=== PATIENT | male | born 1970 | race Caucasian/White ===

== ENCOUNTER 2023-05-28 08:35 | Outpatient (CLI) | payer BC, SELFPAY | END 2023-05-28 08:36 | disposition home or self-care (01) | PROVIDERS: PCP Physician Assistant Medical; Visit Provider Physician Assistant Medical | DX: R63.4 Abnormal weight loss (principal); R63.1 Polydipsia; R53.83 Other fatigue; E11.9 Type 2 diabetes mellitus without complications; I10 Essential (primary) hypertension | CPT/HCPCS: 80053; 80061; 82043; 82570; 83525; 84443; G0103 ==

== ENCOUNTER 2023-06-04 14:43 | Emergency (ER) | payer BC, SELFPAY ==
[2023-06-04] VITALS (7 sets, daily range): BP systolic 129–136; BP diastolic 71–87; PULSE 60–71; RESP 12–16; TEMP 36.1; O2SAT 94–97
--- NOTE | 2023-06-04 15:22 | CT_ITS ---
Patient: GENE KOVACS Facility:?[facility] RIS Patient ID:?[id number] Site Patient ID:?[id number]. Site :?1970 Study:?CT-Head Angio W/ISOVUE 370 95CC-06/04/2023 4:28:13 PM Ordering Physician:RHETT Final Report: ADDENDUM: 95 cc Isovue 370. CRL:sp CLINICAL HISTORY: Visual changes; frontal pressure. TECHNIQUE: Standard helical CT image acquisition through the head following the administration of intravenous contrast was performed. 3D and MIP reconstructions were performed at a separate workstation and permanently archived. COMPARISON: None available. FINDINGS: No intracranial proximal large vessel occlusion or flow-limiting luminal stenosis. No evidence of cerebral aneurysm. No findings to suggest an arterial-venous shunting lesion. The major dural venous sinuses and deep venous system are patent. IMPRESSION: No intracranial proximal large vessel occlusion, flow-limiting luminal stenosis, or cerebral aneurysm. Please note that all CT scans at this facility use dose modulation, iterative reconstruction, and/or weight-based dosing when appropriate to reduce radiation dose to as low as reasonably achievable. Dictated by Reji Matias MD @ 06/05/2023 4:18:11 PM Signed by: Reji Matias @ 06/05/2023 4:18:11 PM (Electronic Signature) Signed by:?Reji Matias MD @06/09/2023 1:25:53 PM (Electronic Signature)
--- NOTE | 2023-06-04 15:22 | CT_ITS ---
Patient: GENE KOVACS Facility:?[facility] RIS Patient ID:?[id number] Site Patient ID:?[id number]. Site :?1970 Study:?CT-Neck Angio CTA MARIBELL Hoover/SHANTAL 370 95CC-06/04/2023 4:28:15 PM Ordering Physician:RHETT Final Report: CLINICAL HISTORY: Visual changes; frontal pressure. TECHNIQUE: Standard helical CT image acquisition through the neck was performed after intravenous contrast bolus enhancement. 3D and MIP reconstructions were performed at a separate workstation and permanently archived. COMPARISON: None available. FINDINGS: The origins of the great vessels from the aortic arch are patent. The common carotid arteries are patent. No significant luminal stenoses of the proximal ICAs by NASCET criteria. The more distal cervical segments of the ICAs are patent. The origins and cervical segments of the vertebral arteries are patent. IMPRESSION: Patent cervical arterial vasculature without hemodynamically significant luminal stenosis. Please note that all CT scans at this facility use dose modulation, iterative reconstruction, and/or weight-based dosing when appropriate to reduce radiation dose to as low as reasonably achievable. Dictated by Reji Matias MD @ 06/05/2023 4:10:55 PM Signed by:?Reji Matias MD @06/05/2023 4:10:55 PM (Electronic Signature)
--- NOTE | 2023-06-04 15:23 | CT_ITS ---
Patient: GENE KOVACS Facility:?[facility] RIS Patient ID:[id number] Site Patient ID:?[id number]. Site :?1970 Study:?CT-Head W/O-06/04/2023 4:25:58 PM Ordering Physician:RHETT Final Report: INDICATION: visual changes; frontal pressure TECHNIQUE: CT of the head was performed without IV contrast. COMPARISON: None. FINDINGS: Parenchyma: No acute hemorrhage, infarction, or mass. periventricular white matter hypoattenuation is nonspecific and is favored to represent chronic small vessel ischemic disease. Ventricles and extra-axial spaces: 1.9 x 1.5 centimeter CSF density lesion in the anterior left middle cranial fossa is favored to represent an arachnoid cyst. Visualized paranasal sinuses: Clear. Mastoid air cells: Clear. Bones: No focal abnormality. Additional comment: None. IMPRESSION: 1. No acute intracranial abnormality. 2. 1.9 x 1.5 centimeter CSF density lesion in the anterior left middle cranial fossa is favored to represent an arachnoid cyst. Please note that all CT scans at this facility use dose modulation, iterative reconstruction, and/or weight-based dosing when appropriate to reduce radiation dose to as low as reasonably achievable. Dictated by Drake Martin MD @ 06/04/2023 5:10:13 PM Signed by:?Drake Martin MD @06/04/2023 5:10:13 PM (Electronic Signature)
--- NOTE | 2023-06-04 15:24 | ED_ITS ---
HPI - General Adult General Chief complaint: Neuro Symptoms/Altered Deficit Stated complaint: pressure in head, vision is blurry Time Seen by Provider: 06/04/23 14:49 History of Present Illness HPI narrative: This 52-year-old male comes in from clinic where he was sent here because of a report of some visual changes that began last night. He states that he normally is nearsighted but last night had some difficulty accommodating and seemed to have better distant vision. He does not report any other symptoms except for some pressure in the frontal part of his forehead. He does not report a headache and does not have any neurologic deficits. He was recently diagnosed with diabetes and started on metformin and insulin and now has good blood glucose control. Related Data Previous Rx's Medication Instructions Recorded blood-glucose meter,continuous #1 ea 05/28/23 (Dexcom G6 Estimator And Drafter Supervisor) blood-glucose sensor (Dexcom G7 #12 ea 05/28/23 Sensor device) blood-glucose transmitter (Dexcom #1 ea 05/28/23 G6 Transmitter device) insulin glargine 100 unit/mL (3 15 unit (0.15 mL) subcut QAM #15 mL 05/28/23 mL) subcutaneous pen (Lantus Solostar U-100 Insulin) metformin 500 mg tablet,extended 2,000 mg (4 x 500 mg) PO QDAY #360 05/28/23 release 24 hr tabs pen needle, diabetic 32 gauge x #100 ea 05/28/23/ (BD Ultra-Fine Roxy Pen Needle) aspirin 81 mg tablet,delayed 81 mg PO QDAY #90 tabs 06/04/23 release (Adult Aspirin Regimen) rosuvastatin 10 mg tablet 10 mg PO QDAY #90 tabs 06/04/23 Allergies Allergy/AdvReac Type Severity Reaction Status Date / Time No Known Drug Allergies Allergy Unverified 06/04/23 11:28 Review of Systems Status of ROS: Reports: 10 or more systems reviewed and unremarkable except as noted in History and below Narrative: Constitutional: No fevers, no weight gain or loss. Eyes: No discharge. Blurry vision as described above. HENT: No congestion, no sore throat, no ear pain. Cardiovascular: No chest pain, no palpitations. Respiratory: No shortness of breath, no wheezes, no cough. Gastrointestinal: No abdominal pain, no vomiting, no diarrhea. Genitourinary: No dysuria, no hematuria. Musculoskeletal: Normal range of motion. Skin: No rashes, no pruritis. Neurological: No dizziness, weakness, sensory change, speech change. Endo/Heme/Allergies: No bruising or bleeding. No polydipsia. Pysch: no suicidality, no anxiety, no insomnia. All other systems reviewed and are negative. [facility] Medical History (Updated 06/04/23 @ 18:26 by Bacilio Sanabria MD) Seborrheic dermatitis ?L21.9 - Seborrheic dermatitis, unspecified (ICD-10) Low back pain (03/22/12) ?M54.50 - Low back pain, unspecified (ICD-10) Surgical History (Updated 05/26/23 @ 10:35 by Ibrahima Presley) History of cholecystectomy ?Z90.49 - Acquired absence of other specified parts of digestive tract (ICD- 10) Family History (Updated 05/26/23 @ 10:35 by Ibrahima Presley) Mother Diabetes Other High blood pressure Social History (Updated 05/28/23 @ 08:45 by Snow Rondon PA-C) Narrative: ( Jenni). 3 kids 13yo son, 18 yo son, 27 yo daughter) Works over nights Never smoker Rare to minimal alcohol use. No recreational drugs Smoking Status: Never smoker How often do you have a drink containing alcohol: never AUDIT-C Alcohol total score: 0 Non-prescribed substance use: denies use Little interest or pleasure in doing things: several days Feeling down, depressed, or hopeless: more than half the days Exam Narrative: Exam Narrative: Constitutional: Well-developed, well-nourished, no acute distress. HEENT: Normocephalic, atraumatic. Neck: Normal range of motion. Nontender. Supple. Heart: Regular. No murmurs. Normal rate. Intact distal pulses. Lungs: Clear to auscultation. No chest discomfort. No wheezes, rhonchi, or rales. Abdomen: Normal bowel sounds. Nontender. No rebound tenderness. Genitalia: Deferred. Back: No midline tenderness. Normal range of motion. Extremities: Normal range of motion. No injury. Skin: Intact. No rash. Warm. No erythema or pallor. Neurologic: No altered sensation. No weakness. Alert and oriented. No facial asymmetry. Tongue is midline. Vyhhni-ae-ksig is normal. No pronator drift. General Claims Agent strength is equal bilaterally. She is able to raise each leg to my hand. Psychiatric: No suicidality. No anxiety or depression. No insomnia. Nursing notes and vitals signs are reviewed. Const: Vital Signs, click to edit/add: Vital Signs - 24 hr 06/04/23 14:52 Temperature 97.0 F L Pulse Rate [Pulse Oximeter] 65 Respiratory Rate 16 Blood Pressure [Ri ght Upper Arm] 130/71 Pulse Oximetry 97 Oxygen Delivery Me thod Room Air Course Vital Signs Vital signs: Initial Vital Signs Temperature 97.0 F L 06/04/23 14:52 Temperature Source Temporal Artery Scan 06/04/23 14:52 Pulse Rate 65 06/04/23 14:52 Respiratory Rate 16 06/04/23 14:52 Blood Pressure 130/71 06/04/23 14:52 Blood Pressure Mean 90 06/04/23 14:52 Blood Pressure Position Sitting 06/04/23 14:52 Pulse Oximetry 97 06/04/23 14:52 Oxygen Delivery Method Room Air 06/04/23 14:52 Vital Signs Temperature 97.0 F L 06/04/23 14:52 Pulse Rate 65 06/04/23 14:52 Respiratory Rate 16 06/04/23 14:52 Blood Pressure 130/71 06/04/23 14:52 Pulse Oximetry 97 06/04/23 14:52 Oxygen Delivery Method Room Air 06/04/23 14:52 Temperature 97.0 F L 06/04/23 14:52 Pulse Rate 65 06/04/23 14:52 Respiratory Rate 16 06/04/23 14:52 Blood Pressure 130/71 06/04/23 14:52 Pulse Oximetry 97 06/04/23 14:52 Oxygen Delivery Method Room Air 06/04/23 14:52 Medical Decision Making MDM Narrative Medical decision making narrative: This patient comes in from clinic sent here with a concern that he may be having some problem with his vertebral artery distribution as he is having difficulty to with accommodation in his vision since last night. His neurologic exam is completely normal. He continues to have change in his vision but is not showing any other signs or symptoms. An IV was established and I did obtain CT of his head and CT angiogram of head and neck. These results returned with normal findings other than incidental finding of the arachnoid cyst. I did consult with Neurology on-call at [facility] and reviewed the patient's symptoms along with results of CT imaging. The neurologist noted that this seemed to be a sufficient workup to rule out any such concerns. I advised the patient to follow-up with an eye doctor for further evaluation. He is okay to be discharged home. ECG Data Interpretation: Sinus bradycardia, rate is 52 beats per minute. There are no specific ST or T- wave abnormalities. Discharge Plan Discharge Clinical Impression: Diabetes, Blurred vision Patient Disposition: Home, Self-Care Condition: Stable Additional Instructions: Follow-up with java jsf developer or automobile damage appraiser for further evaluation treatment. Continue current plans otherwise or return if symptoms are worsening or evolving further with new findings. Prescriptions: No Action insulin glargine [Lantus Solostar U-100 Insulin] 100 unit/mL (3 mL) insulin pen 15 unit subcut QAM Qty: 15 3RF Rx Instructions: 15 units daily. Add 3 units daily ( every 3 days) until morning Blood sugar is less than 160. Max dose 61 units metformin 500 mg tablet extended release 24 hr 2,000 mg PO QDAY Qty: 360 3RF Rx Instructions: take 4 tablets once daily (DME) Dexcom G6 Transmitter Device See Rx Instructions .MEDSUPPLY Qty: 1 3RF Rx Instructions: As directed continuous for diabetes (DME) Dexcom G7 Sensor Device See Rx Instructions .MEDSUPPLY Qty: 12 0RF Rx Instructions: change every 10 days (DME) Dexcom G6 Estimator And Drafter Supervisor Misc See Rx Instructions .MEDSUPPLY Qty: 1 0RF Rx Instructions: As directed for coninuous glucose monitoring (DME) pen needle, diabetic [BD Ultra-Fine Roxy Pen Needle] 32 gauge x 5/32 needle See Rx Instructions .ROUTE .MEDSUPPLY Qty: 100 3RF Rx Instructions: once daily for diabetes aspirin [Adult Aspirin Regimen] 81 mg tablet,delayed release (DR/EC) 81 mg PO QDAY Qty: 90 3RF Rx Instructions: one tablet once daily rosuvastatin 10 mg tablet 10 mg PO QDAY Qty: 90 0RF Rx Instructions: one tablet once daily for cholesterol Follow Up/Referrals: Snow Rondon PA-C [Primary Care Provider] - Stand Alone Forms: [employer] Info Instructions
== END 2023-06-04 18:36 | disposition home or self-care (01) ==
PROVIDERS: Emergency Provider Emergency Medicine Emergency Medical Services; PCP Physician Assistant Medical
DX: H53.8 Other visual disturbances (principal); E11.9 Type 2 diabetes mellitus without complications
CPT/HCPCS: 70450; 70496; 70498; 93005; 99284; 99285; Q9967

== ENCOUNTER 2023-09-02 09:05 | Outpatient (CLI) | payer BC, SELFPAY | END 2023-09-02 09:06 | disposition home or self-care (01) | LOC: NFLDREF 09-04 11:26 | PROVIDERS: PCP Physician Assistant Medical; Referring Provider Physician Assistant Medical; Visit Provider Physician Assistant Medical | DX: I10 Essential (primary) hypertension (principal); E78.5 Hyperlipidemia, unspecified; E11.9 Type 2 diabetes mellitus without complications | CPT/HCPCS: 80053; 80061 ==

== ENCOUNTER 2023-11-30 09:15 | Outpatient (CLI) | payer BC, SELFPAY | END 2023-11-30 09:16 | disposition home or self-care (01) | PROVIDERS: PCP Physician Assistant Medical; Visit Provider Physician Assistant Medical | DX: E78.5 Hyperlipidemia, unspecified (principal); Z13.21 Encounter for screening for nutritional disorder | CPT/HCPCS: 80061; 80076; 82607 ==

== ENCOUNTER 2025-02-27 10:52 | Outpatient (CLI) | payer OTHER, SELFPAY | END 2025-02-27 10:53 | disposition home or self-care (01) | PROVIDERS: PCP Physician Assistant Medical; Visit Provider Physician Assistant Medical | DX: Z00.00 Encounter for general adult medical examination without abnormal findings (principal); E11.9 Type 2 diabetes mellitus without complications; E78.5 Hyperlipidemia, unspecified | CPT/HCPCS: 80053; 80061; 82043; 82570; 82607; 84443; G0103 ==